=== PATIENT | male | born 1950 | race Caucasian/White ===

== ENCOUNTER 2024-07-22 12:35 | Emergency (ER) | payer MEDICARE, SELFPAY ==
[2024-07-22 12:38] VITALS: BP 154/95; PULSE 89; TEMP 36.6; O2SAT 99; BMI 27.8
[2024-07-22 13:48] VITALS: BP 126/88; PULSE 70; O2SAT 98
--- NOTE | 2024-07-22 15:18 | ED.ABDPAIN1 ---
HPI - Abdominal Pain General Chief Complaint: Abdominal Pain Stated Complaint: ABDOMINAL PAIN Time Seen by Provider: 07/22/24 12:40 Source: patient Mode of arrival: walk-in History of Present Illness HPI narrative: Patient presents ED complaining of abdominal pain. He had an ablation and a pacemaker placed on . He has been on some pain medication ever since and has not been eating or drinking as much and he has not been moving around as much. He said due to all of this he has been backed up and has not really had a bowel movement since. He said he maybe got a little bit out since but not much. He now states he is having trouble urinating because he is so constipated. He has tried stool softeners and MiraLAX without any luck. No vomiting. No fevers Related Data Home Medications ?Medication ?Instructions ?Recorded ?Confirmed amlodipine 5 mg tablet 5 mg PO DAILY 07/22/24 07/22/24 celecoxib 200 mg capsule 200 mg PO BID 07/22/24 07/22/24 clonidine HCl 0.1 mg tablet 0.1 mg PO BID 07/22/24 07/22/24 ezetimibe 10 mg tablet 10 mg PO DAILY 07/22/24 07/22/24 metoprolol succinate 25 mg 12.5 mg PO DAILY 07/22/24 07/22/24 tablet,extended release 24 hr rosuvastatin 5 mg tablet 5 mg PO DAILY 07/22/24 07/22/24 tamsulosin 0.4 mg capsule 0.4 mg PO DAILY 07/22/24 07/22/24 Allergies Allergy/AdvReac Type Severity Reaction Status Date / Time No Known Drug Allergies Allergy Verified 07/22/24 12:46 Review of Systems ROS Status of ROS 10 or more systems reviewed and unremarkable except as noted in history and below [facility] Medical History (Updated 07/22/24 @ 13:39 by Briseyda Mark DO) Hypertension ?I10 - Essential (primary) hypertension (ICD-10) Cardiac pacemaker ?Z95.0 - Presence of cardiac pacemaker (ICD-10) Surgical History (Updated 07/22/24 @ 13:29 by Felecia Cooper) History of radiofrequency ablation (RFA) procedure for cardiac arrhythmia ?Z98.890 - Other specified postprocedural states (ICD-10) Exam Narrative Exam Narrative: General: alert, no acute distress Cardiovascular: regular rate and rhythm, normal peripheral perfusion. Respiratory: Lungs CTA, respirations non labored. Extremities: no deformity, no trauma. Neurological: oriented x 4, LOC appropriate for age. Abdomen is distended mildly firm mild tenderness in the left lower quadrant. Rectal exam reveals impacted stool Constitutional Vital Signs, click to edit/add: Last Vital Signs Temp 97.9 F 07/22/24 12:38 Pulse 70 07/22/24 13:48 Resp 18 07/22/24 13:48 BP 126/88 07/22/24 13:48 Pulse Ox 98 07/22/24 13:48 O2 Del Method Room Air 07/22/24 12:38 Course Vital Signs Vital signs: Vital Signs Temperature 97.9 F 07/22/24 12:38 Pulse Rate 89 07/22/24 12:38 Respiratory Rate 22 H 07/22/24 12:38 Blood Pressure 154/95 H 07/22/24 12:38 Pulse Oximetry 99 07/22/24 12:38 Oxygen Delivery Method Room Air 07/22/24 12:38 Temperature 97.9 F 07/22/24 12:38 Pulse Rate 70 07/22/24 13:48 Respiratory Rate 18 07/22/24 13:48 Blood Pressure 126/88 07/22/24 13:48 Pulse Oximetry 98 07/22/24 13:48 Oxygen Delivery Method Room Air 07/22/24 12:38 MDM - Abdominal Pain MDM Narrative Medical decision making narrative: After manual disimpaction patient was given an enema and had a large bowel movement. He said he felt much better and was also able to urinate. He said he feels back to normal. No pain. I instructed him to stay on the MiraLAX until his bowels were regular. He states he is done with the pain medication. Follow-up with his doctor as scheduled. Return to ED if worsening symptoms. Differential Diagnosis Differential diagnosis: Likely abdominal pain, constipation, gastroenteritis and small bowel obstruction Discharge Plan Discharge Chief Complaint: Abdominal Pain Clinical Impression: Constipation Patient Disposition: Home, Self-Care Time of Disposition Decision: 13:38 Condition: Good Mode of Transportation: Private Vehicle Prescriptions / Home Meds: No Action amlodipine 5 mg tablet 5 mg PO DAILY celecoxib 200 mg capsule 200 mg PO BID clonidine HCl 0.1 mg tablet 0.1 mg PO BID ezetimibe 10 mg tablet 10 mg PO DAILY metoprolol succinate 25 mg tablet extended release 24 hr 12.5 mg PO DAILY rosuvastatin 5 mg tablet 5 mg PO DAILY tamsulosin 0.4 mg capsule 0.4 mg PO DAILY Print Language: Bruneian Instructions: Constipation (ED) Referrals: ALEKSANDRA GURROLA [Primary Care Provider] - 1 week Discharge Date/Time: 07/22/24 13:49 Procedures ED Procedure Instructions Procedures Procedures: Manual disimpaction performed by myself in ED. Patient tolerated well and a moderate amount of stool was removed from the rectal vault.
== END 2024-07-22 13:49 | disposition home or self-care (01) ==
PROVIDERS: Emergency Provider Emergency Medicine; PCP Family Medicine
DX: K59.00 Constipation, unspecified (principal); Z95.0 Presence of cardiac pacemaker; Z98.890 Other specified postprocedural states
CPT/HCPCS: 99283